=== PATIENT | male | born 1940 | race Caucasian/White ===

== ENCOUNTER 2024-02-10 15:10 | Outpatient (RCR) | payer MEDICARE, OTHER, SELFPAY | END 2024-02-10 23:59 | disposition home or self-care (01) | LOC: RPT 15:10 | PROVIDERS: ATTENDING PHYSICIAN Family Medicine | DX: M48.061 Spinal stenosis, lumbar region without neurogenic claudication (principal); Z73.6 Limitation of activities due to disability; R26.89 Other abnormalities of gait and mobility | CPT/HCPCS: 97110; 97162 ==

== ENCOUNTER 2024-03-13 14:17 | Outpatient (RCR) | payer MEDICARE, OTHER, SELFPAY | END 2024-03-13 23:59 | disposition home or self-care (01) | LOC: RPT 14:17 | PROVIDERS: ATTENDING PHYSICIAN Family Medicine | DX: M48.061 Spinal stenosis, lumbar region without neurogenic claudication (principal); Z73.6 Limitation of activities due to disability; R26.89 Other abnormalities of gait and mobility | CPT/HCPCS: 97010; 97110 ==

== ENCOUNTER 2024-04-10 15:34 | Outpatient (RCR) | payer MEDICARE, OTHER, SELFPAY | END 2024-04-11 07:45 | disposition home or self-care (01) | LOC: RPT 15:34 | PROVIDERS: ATTENDING PHYSICIAN Family Medicine | DX: R26.89 Other abnormalities of gait and mobility (principal); M48.061 Spinal stenosis, lumbar region without neurogenic claudication; Z73.6 Limitation of activities due to disability | CPT/HCPCS: 97010; 97110 ==

== ENCOUNTER → 2024-06-21 15:01 | Outpatient (REF) | payer MEDICARE, OTHER, SELFPAY | LOC: RAD 15:01 | PROVIDERS: ATTENDING PHYSICIAN Family Medicine | DX: R60.0 Localized edema (principal) | CPT/HCPCS: 93971 ==

== ENCOUNTER 2024-11-03 15:29 | Emergency (ER) | payer MEDICARE, OTHER, SELFPAY ==
[2024-11-03 15:34] VITALS: BP 173/100
[2024-11-03 15:51] LABS: % Eosinophils 5.8 % (0-6); % Immature Granulocytes 0.3 % (0-0.5); % Lymphocytes 26.6 % (20.5-51.1); % Monocytes 6.9 % (1.7-9.3); % Neutrophils 59.4 % (42.2-75.2); Absolute Basophils 0.1 10^3/uL (0-0.2); Absolute Eosinophils 0.5 10^3/uL (0-0.7); Absolute Lymphocytes 2.5 10^3/uL (1.2-3.4); Absolute Monocytes 0.7 10^3/uL (0.1-0.6); Absolute Neutrophils 5.6 10^3/uL (1.4-6.5); Hematocrit 39.1 % (39.0-52.0); Hemoglobin 13.7 g/dL (13.0-18.0); Mean Corpuscular Hgb 31.9 pg (27.0-31.0); Mean Corpuscular Volume 91.1 fL (80.0-94.0); Mean Platelet Volume 10.3 fL (7.4-10.4); Nucleated Red Blood Cells % 0 % (-); Platelet Count 193 10^3/uL (130-400); Red Blood Cell Count 4.29 10^6/uL (4.70-6.10); Red Cell Dist. Width 13.1 % (11.5-14.5); White Blood Cell Count 9.4 10^3/uL (4.8-10.8)
[2024-11-03 16:12] LABS: ALT (SGPT) 23 U/L (0-50); AST (SGOT) 25 U/L (17-59); Alkaline Phosphatase 65 U/L (38-126); Blood Urea Nitrogen 16 mg/dl (9-20); Calcium 9.3 mg/dl (8.4-10.2); Carbon Dioxide 30 mmol/L (22-30); Chloride 102 mmol/L (98-107); Glucose 212 mg/dl (70-99); Potassium 4.4 mmol/L (3.5-5.1); Sodium 138 mmol/L (135-145); Total Bilirubin 0.4 mg/dl (0.2-1.3); Total Protein 6.3 g/dl (6.3-8.2); eGFR > 60.00
--- NOTE | 2024-11-03 19:00 | EDRN ---
Report received, introduced myself to patient who is wanting to leave, informed him if I could just talk with Dr. Bustillo to see him before he decides to just leave. Spoke with Dr. Bustillo who then went in and spoke with patient and patient will get head
CT and hopefully be leaving.
[2024-11-03 19:30] LABS: Urine Albumin Negative (Neg - Trace); Urine Bilirubin Negative (Negative); Urine Character Clear (Clear); Urine Color Yellow; Urine Glucose 1+ (Negative); Urine Ketone Negative (Negative); Urine Leukocyte Negative (Negative); Urine Nitrite Negative (Negative); Urine Occult Blood Negative (Negative); Urine Urobilinogen 1+ (Neg - 1+)
--- NOTE | 2024-11-03 20:19 | ED.GENMED ---
History of Present Illness
General
Chief Complaint: Change in Mental Status
Source: patient and family
Exam Limitations: none
Time Seen by Provider: 11/03/24 18:04
Nursing documentation reviewed up to this point in time: agreed with
History of Present Illness
History of Present Illness:
Patient presents to ED for an evaluation secondary to brief episode of confusion, noted by his family this afternoon. Patient states that he had arrived at the parking lot of the hospital to visit his who was admitted 2 days earlier. However
when he parked his car, patient could not remember his spouses room number, which typically would not happen for him. Patient proceeded to call his son on the phone, where he was noted to be 'not himself' with aforementioned confusion. Denies
slurred speech. Denies headache. Denies dizziness. Denies difficulty with speech. Denies loss of sensation or weakness. Denies difficulty with ambulation. Denies previous history of similar symptoms. Denies recent medications or diet.
However, patient does report that he is under heavy stress emotionally, secondary to hospitalization of his . Patient does state that he is eating and drinking fluids on his own, as his family members are providing his meals. Denies inability
to sleep.
Review of Systems
Review of Systems
Allergies reviewed?: Yes
All Other Systems: ROS reviewed and negative except as documented in HPI and ROS
Constitutional: Reports no symptoms
EENT: Reports no symptoms
Respiratory: Reports no symptoms
Cardiac: Reports no symptoms
ABD/GI: Reports no symptoms
Musculoskeletal: Reports no symptoms
Skin: Reports no symptoms
Neurological: Reports other (confusion)
Phy Exam
Physical Exam
Physical Exam:
Physical Exam
General: no apparent distress, not acutely ill. afebrile
Head: nc/at. eomi
Neck: supple. normal range of motion
Heart: s1/s2 regular rate and rhythm, no murmur. equal radial pulses.
Lungs: no acute respiratory distress. clear bilaterally
Abdomen: normal bowel sounds. not tender.
Neuro: alert and oriented x 3. no focal sensory/motor deficit. normal speech. normal heel to dyer testing. normal finger to nose testing. normal gait.
Skin: no rash
Psychiatric: well kept. interactive and cooperative
Extremities: no edema. no calf tenderness.
Course
Orders/Labs/Results
Orders:
Orders
11/03/24 15:42
CMP [Comprehensive Metabolic Panel] Urgent
Complete Blood Count/With Diff Urgent
11/03/24 19:23
Urinalysis Reflex To Culture Urgent
Date Specimen was Collected: 11/03/24
Time Specimen was Collected: 18:47
11/03/24 20:00
CT Head W/o Iv Contrast Urgent
Comment:
Reason For Exam: mental status change
Abnormal Lab Results
11/03/24 11/03/24
15:42 19:23
RBC 4.29 L 10^6/uL
(4.70-6.10)
MCH 31.9 H pg
(27.0-31.0)
Absolute Monos (auto) 0.7 H 10^3/uL
(0.1-0.6)
Glucose 212 H mg/dl
(70-99)
Urine Glucose 1+ A
(Negative)
11/03/24 15:42
11/03/24 15:42
Vital Signs
Initial and Last Documented VS:
Initial Vital Signs
Temp Pulse Resp BP Pulse Ox
97.9 F 94 16 173/100 98
11/03/24 15:34 11/03/24 15:34 11/03/24 15:34 11/03/24 15:34 11/03/24 15:34
Last Documented Vital Signs
Temp Pulse Resp BP Pulse Ox
97.9 F 62 16 178/79 99
11/03/24 15:34 11/03/24 20:22 11/03/24 20:22 11/03/24 20:22 11/03/24 20:22
MDM/Problems Addressed
MDM/Problems Addressed:
Patient remains asymptomatic during extended course of observation ED, along with unremarkable workup, including blood work and CT head. Differential diagnosis, including potential TIA, discussed with patient and her family. However, given
patient's complete vascular symptoms along with short duration, decision made to discharge patient home at this time, with recommendation for close follow-up with PCP, including potential MRI brain as outpatient. Prior to discharge, did have
extensive discussion about having to return to ED with any recurrent or new neurological symptoms. In addition, related to son recommendation for potentially taking 81 mg aspirin daily, unless there is a history of GI bleed or allergy history.
*Critical Care Note
Total Time (30-74mins, 75-104mins- exclusive of procedures): Not Applicable
ED Attending Note
-
Portions of this chart may have been created with voice recognition software.� Occasional wrong word or��sound alike� substitutions may have occurred due to the inherent limitations of voice recognition software.
Discharge Plan
Departure
Patient Disposition: Home (Routine Discharge)
Date of Disposition: 11/03/24
Time of Disposition: 20:53
Patient with high blood pressure during this ER visit?: Yes
Condition: Good
Discharge Problem:
Altered mental status
Instructions: Altered Mental Status (DC)
Prescriptions:
No Action
glipizide 5 mg Tablet Extended Release 24hr
15 mg PO DAILY
glipizide 5 mg Tablet Extended Release 24hr
5 mg PO HS
simvastatin 40 mg Tablet
40 mg PO HS
ibuprofen 200 mg Tablet
200 mg PO Q6H PRN (Reason: pain)
fluticasone propionate [Flonase Allergy Relief] 50 mcg/actuation [place],Suspension
1 spray INTRANASAL DAILY
metformin 500 mg Tablet Extended Release 24 Hr
500 mg PO BID
tramadol 50 mg tablet
50 mg PO Q6HPRN PRN (Reason: severe pain/breakthrough pain) Qty: 10 0RF
acetaminophen [Tylenol Extra Strength] 500 mg tablet
1,000 mg PO Q6HPRN PRN (Reason: mild pain) Qty: 1 0RF
polyethylene glycol 3350 [Miralax] 17 gram/dose powder
4 g PO DAILY PRN (Reason: Constipation) Qty: 119 0RF
Rx Instructions:
start a laxative such as MIRALAX on day 2 after surgery if no bowel movement yet as long as no nausea/vomiting and passing gas
Referrals:
Evin Zaldivar MD [Family Provider] -
Activity Restrictions/Additional Instructions:
As discussed, please follow-up with your primary care physician for reevaluation, including potential MRI brain as an outpatient.
Interventions
Interventions:
*Risk Screen - Suicide Last Done: 11/03/24 15:34
*General Assessment Last Done: 11/03/24 15:34
*Neglect/Abuse Screening Last Done: 11/03/24 21:03
ED- Fall Risk Assessment Last Done: 11/03/24 16:33
*ED COVID-19 Vaccine History Last Done: 11/03/24 15:34
*Nursing Disposition Last Done: 11/03/24 21:05
ED- Pulmonary Assessment Last Done: 11/03/24 16:33
ED- Neurological Assessment Last Done: 11/03/24 16:33
Discharge Date and Time
Discharge Date/Time: 11/03/24 21:06
Print Language: AZERBAIJANI
[2024-11-03 20:22] VITALS: BP 178/79
--- NOTE | 2024-11-03 21:03 | EDRN ---
Dr. Bustillo back in to talk with family about being discharged and the importance of follow up and if anything changes with him to come back, patient and family understand.
== END 2024-11-03 21:06 | disposition home or self-care (01) ==
LOC: EMR 15:29
PROVIDERS: EMERGENCY PHYSICIAN Emergency Medicine; FAMILY PHYSICIAN Family Medicine
DX: R41.82 Altered mental status, unspecified (principal)
CPT/HCPCS: 99284; 70450; 80053; 81003; 85025

== ENCOUNTER 2025-11-13 08:10 | Inpatient (IN) | payer MEDICARE, OTHER, SELFPAY ==
[2025-11-10] VITALS (11 sets, daily range): BP systolic 166–188; BP diastolic 71–92; BMI 22.6
[2025-11-10 16:08] LABS: Hematocrit 39.0 % (39.0-52.0); Hemoglobin 13.3 g/dL (13.0-18.0); Mean Corp Hgb Conc. 34.1 g/dL (33.0-37.0); Mean Corpuscular Volume 91.1 fL (80.0-94.0); Nucleated Red Blood Cells % 0 % (-); Platelet Count 227 10^3/uL (130-400); Red Cell Dist. Width 12.7 % (11.5-14.5)
--- NOTE | 2025-11-10 16:28 | ED.GENMED ---
History of Present Illness
<Heidy Silver PA-C - Last Filed: 11/11/25 19:59>
General
Chief Complaint: Abdominal Pain
Source: patient and family
Exam Limitations: none
Time Seen by Provider: 11/10/25 15:56
Nursing documentation reviewed up to this point in time: agreed with
History of Present Illness
History of Present Illness:
Patient is a 84-year-old male with history of diabetes who presents to the emergency department for evaluation of upper abdominal discomfort. Patient describes a pressure type pain in his upper abdomen which he initially noticed yesterday. He
currently reports it is 5/6 out of 10 in severity. He denies any sharp or tearing component to pain. He denies any radiation of pain into the back, shoulder, or jaw. He also reports intermittent nausea/lack of appetite over the past few weeks.
He denies any shortness of breath at rest however states that over the past 2 weeks he has been winded with minimal exertion.
He denies any fever, chills, urinary symptoms, or changes in bowel habits. No vomiting. No productive cough.
Patient does have family history of cardiac disease however no personal history.
Review of Systems
<Heidy Silver PA-C - Last Filed: 11/11/25 19:59>
Review of Systems
Allergies reviewed?: Yes
All Other Systems: ROS reviewed and negative except as documented in HPI and ROS
Phy Exam
<Heidy Silver PA-C - Last Filed: 11/11/25 19:59>
Physical Exam
Physical Exam:
Vitals: Hypertensive, otherwise vital signs stable. Afebrile
General: Patient appears in no distress.
Skin: Warm and dry, no rashes or lesions
Head: Normocephalic, atraumatic
Eyes: Sclera nonicteric.
Throat: Protecting airway
Neck: Normal ROM, no cervical spine tenderness, no meningismus
Cardiac: Regular rate and rhythm, no murmurs.
Pulm: Normal respiratory effort. Lungs clear bilaterally
Abdomen: Abdomen soft. Mild reproducible tenderness in epigastric region. No rebound or guarding. Negative Lorenz sign.
Extremities: No evidence of cyanosis or edema
Neuro: AAOx3. Grossly intact
Psychiatric: Normal affect.
Course
<Heidy Silver PA-C - Last Filed: 11/11/25 19:59>
Orders/Labs/Results
Orders:
Orders
11/10/25 11:49
IV Insert/Care/Rem.- Treatment PRN
11/10/25 11:50
Electrocardiogram (*1) Urgent
Reason for Study: Abdominal Pain
EKG- Treatment ONCE
11/10/25 15:56
Complete Blood Count/With Diff Urgent
Comprehensive Metabolic Panel Urgent
Lipase Urgent
11/10/25 15:57
NT-proBNP Urgent
Comment: ADD ON
Troponin I Urgent
11/10/25 16:26
CR Chest - 2 Views Urgent
Comment:
Reason For Exam: epigastric pain, exertional dyspnea
11/10/25 16:36
Famotidine [Pepcid] 20 mg IV NOW STA
11/10/25 16:37
Morphine Sulfate 4 mg IV NOW STA
11/10/25 16:49
CT Abd/pelvis W Iv Cont Urgent
Comment:
Reason For Exam: epigastric pain, nausea
11/10/25 19:00
Electrocardiogram (*1) Urgent
Reason for Study: Abdominal Pain
EKG- Treatment ONCE
11/10/25 19:13
Troponin I Urgent
11/10/25 19:44
Morphine Sulfate 2 mg IV NOW STA
11/10/25 22:[address] [CT Head W/o Iv Contrast] Stat
Comment:
Reason For Exam: acute confusion
11/10/25 22:11
COVID-19 Antigen Urgent
Source: Nasal Swab
Influenza A+B Rapid Molecular Urgent
AUBREE Source: Nasal Swab
Specimen Description:
11/10/25 22:12
Admit/Transfer Patient As Directed
Co-Sign Provider:
Level of Care: Observation services
Assign to:: Telemetry
Physician / Group: Chriss Burger
Diagnosis: Left bundle branch block (LBBB), Epigastric abdominal pain, acute confusion
Reason for Telemetry: Arrhythmia
Date to Stop Telemetry: 11/13/25
Time to Stop Telemetry: 11:00
Urinalysis Reflex To Culture Stat
Date Specimen was Collected: 11/11/25
Time Specimen was Collected: 02:59
11/10/25 22:13
PRN Pain Medication Management As Directed
May give lesser potent ordered pain med per pt: Yes
preference::
Protocol:: Medication orders for pain may be administered in a
manner that supports deferring to patient preference
when the pt is:
- Requesting an ordered lesser potent pain medication.
Least to most potent pain medications are defined
as: acetaminophen < NSAID < tramadol < opioids
(morphine, oxycodone, hydromorphone).
- Requesting a lesser dose of the same medication IF
ORDERED.
- Requesting a less intrusive route of administration
if both routes are prescribed by the provider (PO <
IV).
11/10/25 22:14
Code Status As Directed
Resuscitation Status: Full Code
11/10/25 23:48
Acetaminophen [Tylenol] 650 mg PO Q4HPRN PRN
Bisacodyl [Dulcolax] 10 mg RECTAL [id number] PRN
Dextrose 50%-Water [Dextrose 50% Syringe] 12.5 grams IV [id number] PRN
Docusate W/Senna [Senokot-S] 1 tablet PO BIDPRN PRN
Glucagon [GlucaGen] 1 mg IM PRN PRN
Morphine Sulfate 2 mg IV Q4HPRN PRN
Oxycodone [Roxicodone] 5 mg PO Q4HPRN PRN
Polyethylene Glycol Powder [Miralax] 17 grams PO DAILYPRN PRN
11/10/25 23:48
Activity As Directed
Activity Level: As Tolerated
Bedside Glucose Monitoring As Directed
Frequency: AC&HS
Additional Instructions:: Change to q6h if pt on TPN, tube feeding or not eating
Intake/ Output As Directed
Frequency: Per unit guidelines
Vital Signs As Directed
Frequency: Per unit guidelines
Weight As Directed
Frequency: Once
Comment: on admission
Pulse Ox/spot Check [RESP] Routine
Quantity: 1
Ot Eval And Treat Routine
Pt Eval And Treat Routine
Activity Level: As Tolerated
DX Deep Vein Thrombosis Video Routine
11/11/25 03:09
Glycohemoglobin (HgbA1c) IN AM
11/11/25 Breakfast
2000 calorie (17 carb) Diabetic
At Your Request: Limited Participation
Does patient need a safe tray?: No
11/11/25 07:30
Insulin Aspart Corrective Low [Novolog Flexpen-Low Resistance] See Protocol SC AC
11/11/25 08:00
Rosuvastatin Calcium [Crestor] 20 mg PO DAILY
11/11/25 18:00
Enoxaparin Sodium [Lovenox] 40 mg SC QPM
11/13/25 11:00
DC Protocol for Telemetry ONCE
Abnormal Lab Results
11/10/25
15:56
WBC 11.5 H 10^3/uL
(4.8-10.8)
RBC 4.28 L 10^6/uL
(4.70-6.10)
MCH 31.1 H pg
(27.0-31.0)
MPV 10.5 H fL
(7.4-10.4)
Abs Immat Gran (auto) 0.1 H 10^3/uL
(0-0.05)
Absolute Neuts (auto) 8.8 H 10^3/uL
(1.4-6.5)
Neutrophils % 76.9 H %
(42.2-75.2)
Lymphocytes % 18.2 L %
(20.5-51.1)
Glucose 223 H mg/dl
(70-99)
11/10/25 15:56
11/10/25 15:56
Vital Signs
Initial and Last Documented VS:
Initial Vital Signs
Temp Pulse Resp BP
98.8 F 98 22 177/85
11/10/25 11:46 11/10/25 11:46 11/10/25 11:46 11/10/25 11:46
Last Documented Vital Signs
Temp Pulse Resp BP Pulse Ox
99.9 F 96 18 172/76 96
11/11/25 19:53 11/11/25 19:53 11/11/25 19:53 11/11/25 15:10 11/11/25 21:00
[place];Sabas Maldonado DO - Last Filed: 11/11/25 22:49>
Orders/Labs/Results
Orders:
Orders
11/10/25 11:49
IV Insert/Care/Rem.- Treatment PRN
11/10/25 11:50
Electrocardiogram (*1) Urgent
Reason for Study: Abdominal Pain
EKG- Treatment ONCE
11/10/25 15:56
Complete Blood Count/With Diff Urgent
Comprehensive Metabolic Panel Urgent
Lipase Urgent
11/10/25 15:57
NT-proBNP Urgent
Comment: ADD ON
Troponin I Urgent
11/10/25 16:26
CR Chest - 2 Views Urgent
Comment:
Reason For Exam: epigastric pain, exertional dyspnea
11/10/25 16:36
Famotidine [Pepcid] 20 mg IV NOW STA
11/10/25 16:37
Morphine Sulfate 4 mg IV NOW STA
11/10/25 16:49
CT Abd/pelvis W Iv Cont Urgent
Comment:
Reason For Exam: epigastric pain, nausea
11/10/25 19:00
Electrocardiogram (*1) Urgent
Reason for Study: Abdominal Pain
EKG- Treatment ONCE
11/10/25 19:13
Troponin I Urgent
11/10/25 19:44
Morphine Sulfate 2 mg IV NOW STA
11/10/25 22:[address] [CT Head W/o Iv Contrast] Stat
Comment:
Reason For Exam: acute confusion
11/10/25 22:11
COVID-19 Antigen Urgent
Source: Nasal Swab
Influenza A+B Rapid Molecular Urgent
AUBREE Source: Nasal Swab
Specimen Description:
11/10/25 22:12
Admit/Transfer Patient As Directed
Co-Sign Provider:
Level of Care: Observation services
Assign to:: Telemetry
Physician / Group: Chriss Burger
Diagnosis: Left bundle branch block (LBBB), Epigastric abdominal pain, acute confusion
Reason for Telemetry: Arrhythmia
Date to Stop Telemetry: 11/13/25
Time to Stop Telemetry: 11:00
Urinalysis Reflex To Culture Stat
Date Specimen was Collected: 11/11/25
Time Specimen was Collected: 02:59
11/10/25 22:13
PRN Pain Medication Management As Directed
May give lesser potent ordered pain med per pt: Yes
preference::
Protocol:: Medication orders for pain may be administered in a
manner that supports deferring to patient preference
when the pt is:
- Requesting an ordered lesser potent pain medication.
Least to most potent pain medications are defined
as: acetaminophen < NSAID < tramadol < opioids
(morphine, oxycodone, hydromorphone).
- Requesting a lesser dose of the same medication IF
ORDERED.
- Requesting a less intrusive route of administration
if both routes are prescribed by the provider (PO <
IV).
11/10/25 22:14
Code Status As Directed
Resuscitation Status: Full Code
11/10/25 23:48
Acetaminophen [Tylenol] 650 mg PO Q4HPRN PRN
Bisacodyl [Dulcolax] 10 mg RECTAL [id number] PRN
Dextrose 50%-Water [Dextrose 50% Syringe] 12.5 grams IV [id number] PRN
Docusate W/Senna [Senokot-S] 1 tablet PO BIDPRN PRN
Glucagon [GlucaGen] 1 mg IM PRN PRN
Morphine Sulfate 2 mg IV Q4HPRN PRN
Oxycodone [Roxicodone] 5 mg PO Q4HPRN PRN
Polyethylene Glycol Powder [Miralax] 17 grams PO DAILYPRN PRN
11/10/25 23:48
Activity As Directed
Activity Level: As Tolerated
Bedside Glucose Monitoring As Directed
Frequency: AC&HS
Additional Instructions:: Change to q6h if pt on TPN, tube feeding or not eating
Intake/ Output As Directed
Frequency: Per unit guidelines
Vital Signs As Directed
Frequency: Per unit guidelines
Weight As Directed
Frequency: Once
Comment: on admission
Pulse Ox/spot Check [RESP] Routine
Quantity: 1
Ot Eval And Treat Routine
Pt Eval And Treat Routine
Activity Level: As Tolerated
DX Deep Vein Thrombosis Video Routine
11/11/25 03:09
Glycohemoglobin (HgbA1c) IN AM
11/11/25 Breakfast
2000 calorie (17 carb) Diabetic
At Your Request: Limited Participation
Does patient need a safe tray?: No
11/11/25 07:30
Insulin Aspart Corrective Low [Novolog Flexpen-Low Resistance] See Protocol SC AC
11/11/25 08:00
Rosuvastatin Calcium [Crestor] 20 mg PO DAILY
11/11/25 18:00
Enoxaparin Sodium [Lovenox] 40 mg SC QPM
11/13/25 11:00
DC Protocol for Telemetry ONCE
Abnormal Lab Results
11/10/25
15:56
WBC 11.5 H 10^3/uL
(4.8-10.8)
RBC 4.28 L 10^6/uL
(4.70-6.10)
MCH 31.1 H pg
(27.0-31.0)
MPV 10.5 H fL
(7.4-10.4)
Abs Immat Gran (auto) 0.1 H 10^3/uL
(0-0.05)
Absolute Neuts (auto) 8.8 H 10^3/uL
(1.4-6.5)
Neutrophils % 76.9 H %
(42.2-75.2)
Lymphocytes % 18.2 L %
(20.5-51.1)
Glucose 223 H mg/dl
(70-99)
11/10/25 15:56
11/10/25 15:56
Vital Signs
Initial and Last Documented VS:
Initial Vital Signs
Temp Pulse Resp BP
98.8 F 98 22 177/85
11/10/25 11:46 11/10/25 11:46 11/10/25 11:46 11/10/25 11:46
Last Documented Vital Signs
Temp Pulse Resp BP Pulse Ox
99.9 F 96 18 172/76 96
11/11/25 19:53 11/11/25 19:53 11/11/25 19:53 11/11/25 15:10 11/11/25 21:00
<Heidy Silver PA-C - Last Filed: 11/11/25 19:59>
MDM/Problems Addressed
Differential Diagnosis Includes:
Not limited to: Gastritis, pancreatitis, biliary colic, acute cholecystitis, acute coronary syndrome, etc.
MDM/Problems Addressed:
84-year-old male with a Abdominal discomfort yesterday as well as intermittent nausea/anorexia for the past 2 weeks. Also reports worsening dyspnea on exertion over the past month. Vitals and physical exam as above. Patient has mild tenderness in
epigastric region although abdomen is soft. Cardio/pulmonary assessment unremarkable.
An EKG was obtained prior to my evaluation which reveals a new left bundle branch block. He does not express any chest pain.
Symptoms seem more abdominal in nature, however would consider cardiac etiology with epigastric discomfort and new left bundle branch block. Will check, abdominal CT, chest x-ray and trend cardiac enzymes. Will treat pain and reassess.
Update: Labs with mild leukocytosis. Chemistry panel with hyperglycemia, otherwise unremarkable. Initial troponin of 0.015. His pain is improved since initial evaluation. CT pending.
Update: CT reveals multiple findings. L4 compression deformity as well as right 10th rib fracture likely secondary to patient's recent fall a few nights ago. Cholelithiasis noted as well as small soft tissue mass in the pancreas. Discussed all
findings with patient's family at length. It is unclear if maybe experiencing symptomatic cholelithiasis or may be related to pancreatic lesion. Also consider possible gastritis/GERD. Repeat troponin is stable making acute cardiac pathology less
likely.
Ultimately�patient has had recurrent pain requiring multiple dose of pain medication. He will require admission for pain control and further evaluation. Patient accepted to hospitalist service in stable condition.
Chronic conditions affecting care:
Diabetes mellitus
Acute Exacerbation and/or Progression of Chronic Illness:
Acute hyperglycemia
<Heidy Silver PA-C - Last Filed: 11/11/25 19:59>
*Radiology
Radiology exam reviewed: radiology read reviewed
*Pulse Oximetry
SaO2: 100
Oxygen Mode of Delivery: Room air
Patient hypoxic: no
*EKG
Interpreted by ED Provider?: Yes
EKG Intrepretation Date: 11/11/25
Interpretation: abnormal
Comparison EKG: changes noted
Heart Rate: 82
Rate: normal
Rhythm: sinus
[place]: normal axis
Interval: normal QT interval
QRS Pattern: left bundle branch block
Ischemia: no ischemia
*Top Loader Interpretation
Rate: normal
Interpretation: normal
Heart Rate: 78
Rhythm: sinus
*Critical Care Note
Total Time (30-74mins, 75-104mins- exclusive of procedures): Not Applicable
<Heidy Silver PA-C - Last Filed: 11/11/25 19:59>
Patient Management
Discussion with other providers: Hospitalist
ED Attending Note
<Heidy Silver PA-C - Last Filed: 11/11/25 19:59>
-
Portions of this chart may have been created with voice recognition software.� Occasional wrong word or��sound alike� substitutions may have occurred due to the inherent limitations of voice recognition software.
<Sabas Maldonado DO - Last Filed: 11/11/25 22:49>
ED Attending Note
Patient seen and examined by attending physician: Yes
I performed the substantive portion of visit, reviewed & personally made and approve the management plan that is documented in note by myself or NITO.: Yes
ED Attending Note:
i agree with April's note.
Pt with upper abd pain, nausea, vomiting. Pain waxes and wanes but doesn't go away. No diarrhea. No chest pain per se. No shortness of breath really. He does have some dyspnea on exertion.
General: Awake, Alert, Oriented X3. No acute distress.
Vitals: unremarkable
Head: Atraumatic
Eyes: Pupils equal, EOMI
Throat: Airway intact, no exudates
Neck: Trachea midline
Lungs: Clear and equal b/l
Heart: Regular rate, no murmurs
Abd: Soft, upper abdominal tenderness to palpation, No pulsatile mass
Neuro: Nonfocal
Skin: Warm, dry, no rash
Extremities: pulses equal b/l, no edema
EKG: Sinus rhythm, left bundle branch block. Left bundle branch block is new compared to previous EKG of September 2023.
Troponin is normal. If this abdominal pain was related to ACS I would expect his troponin to be elevated at this point given its been present for several hours.
Patient's abdominal pain is poorly controlled. CT shows a pancreatic lesion. Unclear if this is the source of the pain. Will hospitalize for further evaluation, analgesia etc.
Discharge Plan
Departure
Patient Disposition: Admit
Date of Disposition: 11/10/25
Time of Disposition: 19:44
Presentation/result/management discussed w/ accepting MD/DO: Hospitalist
Discharge Problem:
Epigastric abdominal pain, Left bundle branch block (LBBB)
Interventions
Interventions:
*General Assessment Last Done: 11/10/25 15:46
*Neglect/Abuse Screening Last Done: 11/10/25 15:46
*ED COVID-19 Vaccine History Last Done: 11/10/25 11:46
*ED Influenza Vaccine History Last Done: 11/10/25 11:46
[facility] Fall Risk Assessment Tool Last Done: 11/10/25 15:46
*Risk Screen - Suicide (C-SSRS) Last Done: 11/10/25 11:46
*Nursing Disposition Last Done: 11/10/25 23:10
QE-[id number]-Ilrtedoxrk Assessment Last Done: 11/10/25 19:21
Discharge Date and Time
Discharge Date/Time: 11/10/25 23:10
[2025-11-10 16:31] LABS: ALT (SGPT) 20 U/L (0-50); AST (SGOT) 21 U/L (17-59); Albumin 4.0 g/dl (3.5-5.0); Alkaline Phosphatase 106 U/L (38-126); Blood Urea Nitrogen 19 mg/dl (9-20); Calcium 9.8 mg/dl (8.4-10.2); Carbon Dioxide 27 mmol/L (22-30); Chloride 102 mmol/L (98-107); Estimated Creatinine Clearance 62 ml/min; Glucose 223 mg/dl (70-99); Lipase 25 U/L (23-300); Potassium 4.3 mmol/L (3.5-5.1); Sodium 138 mmol/L (135-145); Total Protein 6.5 g/dl (6.3-8.2); eGFR > 60.00
[2025-11-10 16:35] LABS: Troponin I 0.015 ng/ml
[2025-11-10] MEDS: MORPHINE SULFATE 4 MG IV (16:51)
[2025-11-10] MEDS: PEPCID 20 MG IV (16:51)
[2025-11-10 19:42] LABS: Troponin I 0.015 ng/ml
[2025-11-10] MEDS: MORPHINE SULFATE 2 MG IV (19:57)
--- NOTE | 2025-11-10 21:08 | HPS.HSE ---
Addendum entered and electronically signed by Chriss Burger DO 11/10/25 22:54:
Patient seen and examined independently. Agree with findings and plan as set forth by EYAL Myers.
Patient is an 84y M with PMH significant for DM-II and dyslipidemia who presents to ED complaining of abdominal discomfort. Patient states that he had a 'dizzy spell' about one week ago and fell backwards striking the wall. He denies LOC. He
denies any prior history of similar 'dizzy spells'. He was seen at Urgent Care after the fall and imaging there was reportedly unremarkable.
Yesterday, patient developed abdominal pain and nausea. He notes pain in the center of the abdomen. No radiation into the back, chest, etc.
Ass:
Abdominal Pain
Fall at Home / Dizziness
New LBBB
Pancreatic Lesion
DM-II
Plan:
Observe overnight for further evaluation and treatment.
? pain related to fall / injuries.
Imaging in the ED shows R 10th rib fracture and L4 compression fracture.
Lesion / soft-tissue mass in body of pancreas - seems less likely that this would be etiology of pain.
Monitor on tele given fall, dizziness, LBBB.
Troponin unremarkable x 2.
Check Echo in AM.
PT / OT evaluations. Pain control / supportive care.
Will need further evaluation of pancreatic lesion - likely as an outpatient.
Original Note:
Family Physician
-
Family Physician: Evin Zaldivar
Chief Complaint
-
upper abdominal pain
History of Present Illness
Patient is a 84-year-old male with past medical history significant for hyperlipidemia and type 2 diabetes who presented to [facility] ED for evaluation of upper abdominal pain with associated nausea. Patient with daughters at bedside to assist with HPI.
Patient is drowsy and confused with assessment, daughters report he has gotten more confused since administration of pain medication. Patients daughter reports that patient sustained a significant fall approximately 1 week ago, was unwitnessed but
family notes dent into dry wall, he was seen at urgent care with no acute findings. He has complained of right sided pain since fall. They report that he started complaining of moderate epigastric pain since yesterday that has been associated with
nausea. They also endorse exertional dyspnea that has been present for sometime and does not appear to be worse. Patient baseline is primary caregiver to his at home, is AAOx4 and indepentent for all ADLs. Denies fever, chills, cough, chest
pain, vomiting, constipation, dairrhea or urinary symptoms.
Medical History
Past Medical History
Past Medical History: Reports Other
Additional Past Medical History:
hyperlipidemia
type 2 diabetes
GERD
Past Surgical History: Reports Other
Additional Past Surgical History:
Left inguinal s/p repair 08/2004
Excision of recurrent sebaceous cyst posterior neck 06/03/2020
tonsillectomy
open right inguinal hernia repair with mesh ([facility]) 09/23/2023
Social History
Tobacco: Non-smoker
Alcohol: Occasional
Drug: None
Personal:
Living: With Family
Employment: Retired
Family History
Family History: Not pertinent
Allergies / Home Medications
Allergies reflects when Allergies were last updated in [employer].
Home Medications with original date entered in [employer]
Allergy/Medication List:
Allergies
Allergy/AdvReac Type Severity Reaction Status Date / Time
No Known Allergies Allergy Verified 11/10/25 11:45
Home Medications
fluticasone propionate 50 mcg/actuation nasal spray,suspension (Flonase Allergy Relief) 1 spray intranasal DAILY 09/16/23
glipizide 5 mg tablet, extended release 24 hr 5 mg PO HS 09/16/23
glipizide 5 mg tablet, extended release 24 hr 15 mg PO DAILY 09/16/23
ibuprofen 200 mg tablet 200 mg PO Q6H PRN pain 09/16/23
metformin 500 mg tablet,extended release 24 hr 500 mg PO BID 09/16/23
acetaminophen 500 mg tablet (Tylenol Extra Strength) 1,000 mg (2 x 500 mg) PO Q6HPRN PRN mild pain #1 tab 09/23/23
polyethylene glycol 3350 17 gram/dose oral powder (Miralax) 4 g PO DAILY PRN Constipation #119 grams 09/23/23
tramadol 50 mg tablet 50 mg PO Q6HPRN PRN severe pain/breakthrough pain #10 tabs 09/23/23
rosuvastatin 20 mg tablet 20 mg PO DAILY 11/10/25
*med rec to be confirmed tomorrow with daughters, patient unable to recall all medications, dosing and frequency*
Review of Systems
-
History Source: Patient and Family
Constitutional: Reports Fatigue; Denies Fever or Chills
EENT: Denies Sore Throat
Respiratory: Reports Trouble Breathing (exertional dyspnea ); Denies Cough
Cardiac: Denies Chest Pain, Diaphoresis, Palpitations or Syncope
Abdomen/GI: Reports Abdominal Pain (epigastric ) and Nausea; Denies Vomiting or Diarrhea
: Denies Dysuria, Frequency or Urgency
Musculoskeletal: Reports Other (right side pain); Denies Joint Pain
Skin: Denies Rash
Neurological: Denies Dizzy, Headache, Weakness or Numbness
Physical Exam
Vital Signs
Vital Signs
Temp Pulse Resp BP Pulse Ox
99.6 F 84 25 174/71 95
11/10/25 19:21 11/10/25 20:00 11/10/25 20:00 11/10/25 20:00 11/10/25 20:00
Physical Exam
General: Well Developed, Well Nourished, No Apparent Distress and Conversant
HEENT: NormoCephalic, Moist mucous membranes, PERRLA, Nose Appears Normal and Ears Appear Normal
Respiratory: Clear and Non Labored Respirations; No Wheezes, Rales or Rhonchi
Cardiac: S1/S2, Regular Rhythm, Murmur and Peripheral Edema; No Rub or Gallop
GI: Soft, Non Tender, Non Distended and Normal Bowel Sounds
Musculoskeletal: No Clubbing and No Cyanosis
Skin: Warm and IV/Catheter Site
Neuro: Awake and Sedated
Psych: Calm
Laboratory Results
-
11/10/25 15:56
11/10/25 15:56
Laboratory Results
Total Bilirubin 0.8 mg/dl (0.2-1.3) 11/10/25 15:56
AST 21 U/L (17-59) 11/10/25 15:56
ALT 20 U/L (0-50) 11/10/25 15:56
Alkaline Phosphatase 106 U/L (38-126) 11/10/25 15:56
Troponin I 0.015 ng/ml 11/10/25 19:13
Lipase 25 U/L (23-300) 11/10/25 15:56
Data Reviewed
-
Diagnostic Radiology: Report Reviewed by me (CXR: No acute cardiopulmonary process.)
CT Scan: Report Reviewed by me (Abd/Pe;: No acute inflammatory process within the abdomen or pelvis. Diverticulosis without acute diverticulitis. No bowel obstruction. No obstructive uropathy. Renal cysts. Cholelithiasis without CT evidence of
acute cholecystitis. Incidental 14 x 17 mm soft tissue pancreatic mass. This could r)
Medical Tests (Nuc Med, Echo, EKG etc): Report Reviewed by me (EKG: NORMAL SINUS RHYTHM LEFT BUNDLE BRANCH BLOCK)
Lab Data: Labs Reviewed by me (WBC 11.5, neut 76.9 )
Impression/Plan
-
IMPRESSION/PLAN:
#upper abdominal pain, nausea and decreased appetite for past several weeks 2/2 recent fall with injuries vs. cholecystitis vs. cardiac origin
upper abdominal pain, nausea and decreased appetite for past several weeks, recent fall (1 week ago)where patient c/o dizziness and nausea before hitting wall and denting drywall originally seen
in urgent care with no acute findings
WBC 11.5, neut 76.9
EKG: NORMAL SINUS RHYTHM
LEFT BUNDLE BRANCH BLOCK
CXR; No acute cardiopulmonary process.
Abd/Pel CT: No acute inflammatory process within the abdomen or pelvis.
Diverticulosis without acute diverticulitis. No bowel obstruction.
No obstructive uropathy. Renal cysts.
Cholelithiasis without CT evidence of acute cholecystitis.
Incidental 14 x 17 mm soft tissue pancreatic mass. This could represent low risk malignancy such as solid pseudopapillary tumor or solid serous cystadenoma, or malignancy such as
neuroendocrine tumor or acinar cell carcinoma. Further evaluation/characterization may be considered with nonemergent follow-up MRI.
Comminuted slightly displaced right lateral 10th rib fracture.
Mild superior endplate fracture of L4. No significant displacement. No retropulsed fracture fragments.
- Admit to telemetry
- Consult PT/OT
- pain regimen
#acute confusion
recent fall 1 week ago with associated dizziness and nausea with dent in drywall per family
Head CT: pending
#soft tissue pancreatic mass
incidental finding on Abd/Pel CT
- follow up out patient with GI
#LBBB
- monitor on telemetry
- ECHO
- follow up with Cardiology out patient
#hyperlipidemia
- continue rosuvastatin
#type 2 diabetes
- AccuCheck AC & HS
- SSI
- hold PO medications while acutely ill
*med rec to be confirmed tomorrow with daughters, patient unable to recall all medications, dosing and frequency, able to confirm glipizide and rosuvastatin with daughters tonight*
Code status: Full code
DVT prophylaxis: Lovenox sq
[2025-11-10 22:44] LABS: COVID-19 Antigen Negative (Negative)
[2025-11-10 23:29] LABS: Glucose - Point of Care 233 mg/dl (70-99)
[2025-11-11] VITALS (14 sets, daily range): BP systolic 137–194; BP diastolic 60–85; PULSE 96–100; O2SAT 97–99; BMI 23.2
[2025-11-11] MEDS: APRESOLINE 5 MG IV (01:42)
--- NOTE | 2025-11-11 02:31 | PTCARENOTE ---
Received pt into room 2252 from ED RN @ approx 2315 via stretcher. pt ambulated w/ rw. Applied tele to pt, SR w/ HR 70's-80's. pt denies any pain at this time. Admission questions and assessment completed as documented. Oriented pt to room and call
flaco. Instructed pt to call RN for assistance ambulating. Call sam within reach.
SBP's 180's-190's. Jacqueline Calderon NP made aware--Ordered PRN Hydralazine. Administered per order.
[2025-11-11] MEDS: TYLENOL 650 MG PO ×3 (03:13→22:56)
[2025-11-11 04:02] LABS: Urine Character Clear (Clear)
[2025-11-11] MEDS: COMPAZINE 10 MG IV (04:30)
[2025-11-11] MEDS: ROXICODONE 5 MG PO (04:54)
[2025-11-11 05:19] LABS: Urine Red Blood Cell 0-2 /HPF (0-2); Urine White Cell 0-2 /HPF (0-5)
[2025-11-11] MEDS: APRESOLINE 10 MG IV (06:11)
--- NOTE | 2025-11-11 07:14 | PTCARENOTE ---
pt c/o nausea, SWIMMER made aware and ordered one time order of Compazine. Administered per order. PRN Rosio administered @ 0454, as well for 10/10 epigastric pain. pt verbalizes pain is still 10/10.
[2025-11-11 07:43] LABS: Glucose - Point of Care 265 mg/dl (70-99)
[2025-11-11] MEDS: CRESTOR 20 MG PO (07:46)
[2025-11-11 08:34] LABS: Glycohemoglobin (HgbA1c) 8.4 % (4.0-5.9)
[2025-11-11 10:23] LABS: Glucose - Point of Care 320 mg/dl (70-99)
[2025-11-11] MEDS: NOVOLOG FLEXPEN-LOW RESISTANCE 4 UNITS SC (10:23)
--- NOTE | 2025-11-11 12:22 | CM ---
Chart reviewed. I spoke with the patient and his daughter. Patient is independent of ADLS, currently living with his at [facility] in a apartment. Patient is independent, but receives assistive care. Patient recently has been
ambulating with a SPC and RW due to back pain and a recent fall. PT evaluation recommending SNF vs Home with 24/7 care. Patient's daughter said the patient would really like to go home. Patient's daughter interested in VN with Home PT. Referral
sent to [facility]. Plan is for the patient to return to [facility] with [facility]. CM to follow
[2025-11-11 13:07] LABS: Glucose - Point of Care 292 mg/dl (70-99)
[2025-11-11] MEDS: NOVOLOG FLEXPEN-LOW RESISTANCE 3 UNITS SC (13:27)
--- NOTE | 2025-11-11 13:51 | W.PN.HOSP.TC ---
Today's Communication/Plan
-
PT eval
ppi
orthos
restart glipizie
monitor overnight
Assessment / Plan
Assessment / Plan
General: Well Developed, Well Nourished, No Apparent Distress and Conversant
HEENT: NormoCephalic, Moist mucous membranes, Nose Appears Normal and Ears Appear Normal
Respiratory: Clear and Non Labored Respirations; No Wheezes, Rales or Rhonchi
Cardiac: S1/S2, Regular Rhythm, Murmur and Peripheral Edema; No Rub or Gallop
GI: Soft, Non Tender, Non Distended and Normal Bowel Sounds
Musculoskeletal: No Clubbing and No Cyanosis
Skin: Warm and IV/Catheter Site
Neuro: Awake and Sedated
Psych: Calm
#Epigastric abdominal pain likely secondary to gastritis versus peptic ulcer disease versus lower likelihood of cardiac etiology
Currently asymptomatic
Start PPI
Troponin were checked and found to be negative x 2
EKG with left bundle branch block which is new compared to EKG which was performed 2 years ago. Patient remains chest pain-free
Echocardiogram is pending
Check orthostatic vital signs
Monitor for heart tones
Monitor symptoms with ambulation
#Recent fall
Right 10th rib fracture
Mild superior endplate fracture of L
Pain control. PT eval
#Pancreatic lesion
Outpatient follow-up with primary doctor with routine MRI
#Hyperlipidemia
Continue with statin
#Diabetes mellitus
Insulin sliding scale. Accu-Cheks
Continue glipizide
Hold metformin for now
#DVT prophylaxis-lovenox
Discussed with patient daughter at bedside in detail
Anticipated Discharge: Within 24 hours
Subjective/Interval History
-
Date of Service: November 11, 2025
Denies any discomfort, chest pain or abdominal pain.
States feeling significantly better compared to yesterday
Denies any lightheaded or dizziness
Was able to tolerate breakfast earlier today
Comfortably sitting in chair.
Objective Data
-
Vital Signs:
Vital Signs
Temp Pulse Resp BP Pulse Ox
98.8 F 91 20 164/83 98
11/11/25 11:30 11/11/25 13:00 11/11/25 11:30 11/11/25 11:29 11/11/25 11:30
I&O
11/10/25 11/11/25 11/12/25
06:59 06:59 06:59
Intake Total 480 / 480
Output Total 100 / 100
Balance 380 / 380
Data Reviewed
-
Total Time Spent with Patient (in minutes): 55
--- NOTE | 2025-11-11 14:11 | PTCARENOTE ---
Assumed care of the pt @ 0700. Pt is AAOx1-2 forgetful and impulse SR with BBB on the monitor VSS. Bed and chair alarm in use. Pt c/o epigastric pain Tylenol given with relief. Daughter at bedside. POC discussed with pt and daughter. Call sam
within reach.
[2025-11-11] MEDS: PROTONIX 40 MG PO ×2 (14:57→20:57)
[2025-11-11 16:44] LABS: Glucose - Point of Care 324 mg/dl (70-99)
[2025-11-11] MEDS: NOVOLOG FLEXPEN-LOW RESISTANCE 300 UNITS SC (17:10)
[2025-11-11] MEDS: LOVENOX 40 MG SC (17:34)
[2025-11-11 22:34] LABS: Glucose - Point of Care 297 mg/dl (70-99)
[2025-11-11] MEDS: GLUCOTROL XL (EXTENDED RELEASE) 5 MG PO (22:34)
--- NOTE | 2025-11-11 23:46 | PTCARENOTE ---
Received pt at change of shift resting in bed. SR on tele, HR 90's. pt AAOx2--disoriented to place, forgetful and impulsive @x's. Bed alarm on and audible. Educated pt to call RN for assistance ambulating. Call sam within reach.
~2250 pt w/ oral temp of 100.6, PRN Tylenol administered--see JAN.
[2025-11-12] VITALS (10 sets, daily range): BP systolic 110–151; BP diastolic 62–75; PULSE 103–115
[2025-11-12 03:53] LABS: Hematocrit 37.9 % (39.0-52.0); Hemoglobin 13.1 g/dL (13.0-18.0); Mean Corp Hgb Conc. 34.6 g/dL (33.0-37.0); Mean Corpuscular Volume 88.1 fL (80.0-94.0); Nucleated Red Blood Cells % 0 % (-); Platelet Count 216 10^3/uL (130-400); Red Cell Dist. Width 12.8 % (11.5-14.5)
[2025-11-12 04:12] LABS: Blood Urea Nitrogen 23 mg/dl (9-20); Calcium 9.2 mg/dl (8.4-10.2); Carbon Dioxide 25 mmol/L (22-30); Chloride 99 mmol/L (98-107); Estimated Creatinine Clearance 53 ml/min; Glucose 256 mg/dl (70-99); Potassium 4.3 mmol/L (3.5-5.1); Sodium 132 mmol/L (135-145); eGFR > 60.00
[2025-11-12] MEDS: GLUCOTROL XL (EXTENDED RELEASE) 15 MG PO (08:29)
[2025-11-12] MEDS: CRESTOR 20 MG PO (08:30)
[2025-11-12] MEDS: PROTONIX 40 MG PO ×2 (08:30→19:41)
[2025-11-12] MEDS: ROXICODONE 5 MG PO (08:35)
[2025-11-12 09:17] LABS: Glucose - Point of Care 206 mg/dl (70-99)
[2025-11-12] MEDS: NOVOLOG FLEXPEN-LOW RESISTANCE 2 UNITS SC (09:41)
--- NOTE | 2025-11-12 10:25 | CM ---
Chart reviewed. Patient is independent of ADLS, is a caregiver for his in an apartment at [facility] in the assisted living, patient's receives assistance with caregivers, ambulates with SPC and RW. Patient wants to go back to [place], patient's daughter agrees it will be a better environment for her father. Patient also has a house they own but currently don't stay there, that is [address], [address]. Referral sent to [facility]. Plan is for the patient to return to [facility] with
[facility]. CM to follow
--- NOTE | 2025-11-12 11:32 | W.PN.HOSP.TC ---
Today's Communication/Plan
-
Trend WBC and fever curve
Infectious workup
Continue with PPI
Assessment / Plan
Assessment / Plan
General: Well Developed, Well Nourished, No Apparent Distress and Conversant
HEENT: NormoCephalic, Moist mucous membranes, Nose Appears Normal and Ears Appear Normal
Respiratory: Clear and Non Labored Respirations; No Wheezes, Rales or Rhonchi
Cardiac: S1/S2, Regular Rhythm, Murmur and Peripheral Edema; No Rub or Gallop
GI: Soft, Non Tender, Non Distended and Normal Bowel Sounds
Musculoskeletal: No Clubbing and No Cyanosis
Skin: Warm and IV/Catheter Site
Neuro: Awake and Sedated
Psych: Calm
#Epigastric abdominal pain likely secondary to gastritis versus peptic ulcer disease versus lower likelihood of cardiac etiology
Currently asymptomatic
Start PPI
Troponin were checked and found to be negative x 2
EKG with left bundle branch block which is new compared to EKG which was performed 2 years ago. Patient remains chest pain-free
Echocardiogram EF of 65%. Normal biventricular size and function without regional wall motion abnormality. No significant valvular disease.
Check orthostatic vital signs
Monitor for heart tones
Monitor symptoms with ambulation
#Mild suspected hospital-acquired delirium
CT head on admission was negative for acute stroke,
Encourage patient sleep symptoms well overnight
Avoid any benzos
Make sure patient has access to using hearing aids
#Fever and leukocytosis likely could be reactive with recent fractures versus rule out infectious process
Check UA with reflex to culture if positive
Check set of blood cultures
Repeat chest x-ray
Monitor WBC and fever curve
#Recent fall
Right 10th rib fracture
Mild superior endplate fracture of L
Pain control. PT eval
#Pancreatic lesion
Outpatient follow-up with primary doctor with routine MRI
#Hyperlipidemia
Continue with statin
#Diabetes mellitus
Insulin sliding scale. Accu-Cheks
Continue glipizide
Hold metformin for now
A1C 8.4
#DVT prophylaxis-lovenox
Discussed with patient daughter's at bedside in detail
Anticipated Discharge: Within 24 hours
Subjective/Interval History
-
Date of Service: November 12, 2025
overnight spiked fever
States of R side ribcage pain
more tired and possibly confused
Objective Data
-
Labs:
Laboratory Results
11/12/25
02:46
WBC 25.1 H
Hgb 13.1
Hct 37.9 L
Plt Count 216
Sodium 132 L
Potassium 4.3
Chloride 99
Carbon Dioxide 25
BUN 23 H
Creatinine 1.0
Glucose 256 H
Calcium 9.2
Vital Signs:
Vital Signs
Temp Pulse Resp BP Pulse Ox
100.1 F 107 16 151/75 92
11/12/25 08:05 11/12/25 10:00 11/12/25 08:05 11/12/25 08:08 11/12/25 08:05
I&O
11/11/25 11/12/25 11/13/25
06:59 06:59 06:59
Intake Total 480 / 480 600 / 600
Output Total 100 / 100
Balance 380 / 380 600 / 600
Data Reviewed
-
Total Time Spent with Patient (in minutes): 55
[2025-11-12 13:32] LABS: Glucose - Point of Care 377 mg/dl (70-99)
[2025-11-12] MEDS: NOVOLOG FLEXPEN-LOW RESISTANCE 5 UNITS SC (13:32)
[2025-11-12] MEDS: LOPRESSOR 12.5 MG PO ×2 (15:34→19:42)
[2025-11-12 16:10] LABS: Magnesium 1.7 mg/dl (1.6-2.3)
[2025-11-12 16:15] LABS: Urine Character Clear (Clear)
[2025-11-12 16:38] LABS: Urine Squamous Cell 0-2 /LPF (Few)
[2025-11-12 16:39] LABS: Urine Red Blood Cell 0-2 /HPF (0-2)
[2025-11-12] MEDS: MAGNESIUM SULFATE 50 IV (16:49)
[2025-11-12] MEDS: LOVENOX 40 MG SC (17:32)
[2025-11-12 18:22] LABS: Glucose - Point of Care 291 mg/dl (70-99)
[2025-11-12] MEDS: NOVOLOG FLEXPEN-LOW RESISTANCE 3 UNITS SC (18:22)
--- NOTE | 2025-11-12 18:45 | PTCARENOTE ---
~3587-8683: Handoff report received from nightshift RN. Pt AOx4, forgetful at times, NSR/ST BBB 90s-100s, SBP 150s, RA satting 92%. Pt c/o R lower rib lj this AM, PRN Rosio given with relief. Patient temp 100.1 this AM as well, Blood cultures
obtained and urine sample needed to sent to lab for processing. Patient standby assist to bathroom. Family at bedside. All needs met at this time, call sam within reach.
~3581-7694: Blood cultures obtained and sent to lab. Family at bedside. Pt OOB in chair at this time. All needs met, call sam within reach.
~1380-3578: Orthostatic BPs done. After sat patient up to complete orthostatics, patient had 34 beat run NSVT, rate 180, asymtpomatic at the time. Dr. Doherty made aware, lab for Mag added and stat dose 12.5mg metoprolol ordered and given.
~3312-9327: Patient voided minimal amount of paco urine, post-void bladder scan completed, about 150ccs in bladder. Patient brought for CXR in stable condition. Patient more confused at this time, figeting with tele box wires and required
reorientation by nursing staff and family.
~0353-4019: Patient back from CXR in stable condition. Magnesium replacement bag hung.
~9716-9958: patient beign trasnfered to 2N, attempt to call report, receiving RN busy, will call back. patient and family made aware. All belongings packed up to go with patient to new room.
~1830: gave report to 2N. Patient left in stable condition via stretcher to 2125 by PCT.
--- NOTE | 2025-11-12 19:10 | PTCARENOTE ---
Pt arrived to unit and assisted x1 to bed. Pt AAOx1. VS stable. Bed alarm placed and assisted pt with meal tray. Oriented pt and family members to room and call sam. Call sam within reach.
[2025-11-12] MEDS: GLUCOTROL XL (EXTENDED RELEASE) 5 MG PO (22:12)
[2025-11-13 03:16] VITALS: BP 115/59
[2025-11-13 07:30] VITALS: BP 109/57
[2025-11-13 08:33] LABS: Hematocrit 37.6 % (39.0-52.0); Hemoglobin 12.9 g/dL (13.0-18.0); Mean Corp Hgb Conc. 34.3 g/dL (33.0-37.0); Mean Corpuscular Volume 90.4 fL (80.0-94.0); Nucleated Red Blood Cells % 0 % (-); Platelet Count 215 10^3/uL (130-400); Red Cell Dist. Width 12.8 % (11.5-14.5)
[2025-11-13 09:38] LABS: Glucose - Point of Care 74 mg/dl (70-99)
[2025-11-13] MEDS: NOVOLOG FLEXPEN-LOW RESISTANCE SC ×2 (09:38→15:18)
[2025-11-13] MEDS: CRESTOR 20 MG PO (09:39)
[2025-11-13] MEDS: PROTONIX 40 MG PO (09:39)
[2025-11-13] MEDS: LOPRESSOR 12.5 MG PO (09:39)
[2025-11-13 10:16] LABS: Blood Urea Nitrogen 36 mg/dl (9-20); Calcium 8.7 mg/dl (8.4-10.2); Carbon Dioxide 26 mmol/L (22-30); Chloride 99 mmol/L (98-107); Estimated Creatinine Clearance 44 ml/min; Glucose 61 mg/dl (70-99); Potassium 3.9 mmol/L (3.5-5.1); Sodium 132 mmol/L (135-145); eGFR 59.26
[2025-11-13 11:44] VITALS: BP 124/64
--- NOTE | 2025-11-13 12:06 | W.PN.HOSP.TC ---
Today's Communication/Plan
-
Await blood culture results
Continue with Lopressor
Outpatient therapy
Possible discharge later today
Assessment / Plan
Assessment / Plan
General: Well Developed, Well Nourished, No Apparent Distress and Conversant
HEENT: NormoCephalic, Moist mucous membranes, Nose Appears Normal and Ears Appear Normal
Respiratory: Clear and Non Labored Respirations; No Wheezes, Rales or Rhonchi
Cardiac: S1/S2, Regular Rhythm, Murmur and Peripheral Edema; No Rub or Gallop
GI: Soft, Non Tender, Non Distended and Normal Bowel Sounds
Musculoskeletal: No Clubbing and No Cyanosis
Skin: Warm and IV/Catheter Site
Neuro: Awake and Sedated
Psych: Calm
#Epigastric abdominal pain likely secondary to gastritis versus peptic ulcer disease versus lower likelihood of cardiac etiology
Currently asymptomatic
Start PPI
Troponin were checked and found to be negative x 2
EKG with left bundle branch block which is new compared to EKG which was performed 2 years ago. Patient remains chest pain-free
Echocardiogram EF of 65%. Normal biventricular size and function without regional wall motion abnormality. No significant valvular disease.
Monitor for heart tones
Monitor symptoms with ambulation
Recommend outpatient follow-up with primary glove brusher Dr. Townsend
#Mild suspected hospital-acquired delirium
CT head on admission was negative for acute stroke,
Encourage patient sleep symptoms well overnight
Avoid any benzos
Make sure patient has access to using hearing aids
#Fever and leukocytosis likely could be reactive with recent fractures versus rule out infectious process
Check UA with reflex to culture if positive no growth
Check set of blood cultures pending.
Repeat chest x-ray no acute cardiopulmonary process noted
Monitor WBC and fever curve
WBC downtrending. Remains afebrile.
#Episode of NSVT
Repleted magnesium. Started Lopressor.
No further events on telemetry noted.
#Recent fall
Right 10th rib fracture
Mild superior endplate fracture of L
Pain control. PT eval
#Pancreatic lesion
Outpatient follow-up with primary doctor with routine MRI
#Hyperlipidemia
Continue with statin
#Diabetes mellitus
Insulin sliding scale. Accu-Cheks
Continue glipizide
Hold metformin for now
A1C 8.4
#DVT prophylaxis-lovenox
Discussed with patient daughter's at bedside in detail
Dispo-SNF vs. 06/06 care. Family prefers going back to [facility]. PT/OT ordered
Anticipated Discharge: Today
Subjective/Interval History
-
Date of Service: November 13, 2025
Wished patient happy birthday
Eating pancakes
Feeling better
Slept well overnight
Objective Data
-
Labs:
Laboratory Results
11/13/25
07:48
WBC 23.3 H
Hgb 12.9 L
Hct 37.6 L
Plt Count 215
Sodium 132 L
Potassium 3.9
Chloride 99
Carbon Dioxide 26
BUN 36 H
Creatinine 1.2
Glucose 61 L
Calcium 8.7
Vital Signs:
Vital Signs
Temp Pulse Resp BP Pulse Ox
99.6 F 78 16 124/64 93
11/13/25 11:44 11/13/25 11:44 11/13/25 11:44 11/13/25 11:44 11/13/25 11:44
I&O
11/12/25 11/13/25 11/14/25
06:59 06:59 06:59
Intake Total 600 / 600 600 / 600
Output Total 80 / 80
Balance 600 / 600 520 / 520
[2025-11-13 12:56] LABS: Magnesium 2.5 mg/dl (1.6-2.3)
--- NOTE | 2025-11-13 13:38 | W.DCSUMMARY ---
Discharge Summary
Discharge Data
Date of Admission: 11/13/25
Date of Discharge: 11/13/25
-
Pending Results: No
Hospital Course
85-year-old male past medical history of diabetes mellitus, GERD, hyperlipidemia who is presenting complaints of abdominal pain and nausea. Patient underwent CT abdomen pelvis which shows pancreatic lesion. Patient symptoms improved. Patient was
started on PPI. Patient also was found to have right 10th rib fracture and lumbar 4th fracture. Patient also had episode of fever. COVID influenza negative. Urine culture negative. Blood culture remain negative. No further episode of fever.
Also had episode of NSVT. EKG with left bundle branch block compared to EKG and 2022. Patient with no left-sided substernal chest pain. Low magnesium and was repleted. Echo was performed without any wall motion abnormality. Started on
Lopressor. Patient was tolerating diet. Patient was eval by PT and OT recommended SNF but patient and family prefers going home with outpatient therapy. Recommended outpatient follow-up with primary doctor and, emergency medical tech. Also recommended
outpatient MRI of the abdomen.
Discharge Plan
-
Patient Disposition: Home with Home Care
Discharge Diagnosis/Procedures: Right lateral 10th rib fracture
Mild superior endplate fracture of L4
NSVT
Fever
Leukocytosis
Mild hyponatremia
Condition: Fair
Diet: As tolerated
Activity: As tolerated
Driving Restrictions: Not until seen by your Dr
Others Tests: MRI of the abdomen with and without contrast by primary doctor.
Other Services: PT and OT
Activity Restrictions/Additional Instructions:
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 This could represent low risk malignancy such as solid pseudopapillary tumor or solid serous cystadenoma, or malignancy such as neuroendocrine tumor or
acinar cell carcinoma. Further evaluation/characterization may be considered with nonemergent follow-up MRI of abdomen.
Referrals:
[facility] [Outside]
Jesse Townsend MD [Active, Cardiology] - in four to six weeks
Evin Zaldivar MD [Family Provider, Family Practice] - in less than 1 week
Prescriptions:
New
metoprolol tartrate 25 mg Tablet
12.5 mg PO BID 30 Days Qty: 30 0RF
pantoprazole 40 mg Tablet,Delayed Release (Dr/Ec)
40 mg PO DAILY Qty: 30 0RF
Continued
glipizide 5 mg Tablet Extended Release 24hr
15 mg PO DAILY
glipizide 5 mg Tablet Extended Release 24hr
5 mg PO HS
fluticasone propionate [Flonase Allergy Relief] 50 mcg/actuation [place],Suspension
1 spray INTRANASAL DAILY
metformin 500 mg Tablet Extended Release 24 Hr
500 mg PO BID
acetaminophen [Tylenol Extra Strength] 500 mg tablet
1,000 mg PO Q6HPRN PRN (Reason: mild pain) Qty: 1 0RF
rosuvastatin 20 mg Tablet
20 mg PO DAILY
Discontinued
ibuprofen 200 mg Tablet
200 mg PO Q6H PRN (Reason: pain)
Discharge Orders:
Discharge Patient (As Directed); Ordered 11/13/25
Ordered By: Aren Doherty
Care Plan Goals
Care Plan Goals:
Problem: Readiness for enhanced knowledge related to diagnosis and treatment plan
Goal: Understand your diagnosis and treatment plan needs, including medications if applicable.
Instructions: Know your diagnosis, underlying causes and treatment plan options, including medications if applicable. Consult with your health care team to learn about your diagnosis and treatment plan, including medications if applicable.
Discharge Date and Time
Discharge Date/Time: 11/13/25 16:30
Print Language: [place]
[2025-11-13] MEDS: GLUCOTROL XL (EXTENDED RELEASE) PO (13:41)
[2025-11-13 13:58] LABS: Glucose - Point of Care 194 mg/dl (70-99)
--- NOTE | 2025-11-13 14:51 | CM ---
CM reviewed chart, spoke with patients Nurse, Hortencia, at [facility].
CM discussed therapy recommendations, aware patient Min Assist x 1, able to accept patient back.
Requesting script for PT/OT- per Hortencia, use [facility] at [facility].
Patient seen bedside with family- family does not want [facility], would [facility]. Update to [facility] to cancel referral.
IMM verbally reviewed, provided with copy, placed in chart.
Family will transport home.
Family asking to speak with Hospitalist prior to d/c- TT with update.
CM will continue to follow.
Plan; return to [facility] to transport, script for PT/OT
[facility]
Report: [phone], Nurse Hortencia or Evie
[2025-11-13 15:43] VITALS: BP 123/63
--- NOTE | 2025-11-13 15:49 | PTCARENOTE ---
Attempted to call report to Joe Giraldo; awaiting a call back.
== END 2025-11-13 16:30 | disposition home health service (06) | DRG 206 ==
LOC: 2 NORTH 08:10
PROVIDERS: Emergency Medicine; Nurse Practitioner Family; Physician Assistant; ADMITTING PHYSICIAN Hospitalist; ATTENDING PHYSICIAN Hospitalist; EMERGENCY PHYSICIAN Emergency Medicine; FAMILY PHYSICIAN Family Medicine
DX: S22.31XA Fracture of one rib, right side, initial encounter for closed fracture (principal); S32.049A Unspecified fracture of fourth lumbar vertebra, initial encounter for closed fracture; I47.20 Ventricular tachycardia, unspecified; E87.1 Hypo-osmolality and hyponatremia; Z11.52 Encounter for screening for COVID-19; K86.9 Disease of pancreas, unspecified; E11.65 Type 2 diabetes mellitus with hyperglycemia; E78.5 Hyperlipidemia, unspecified; W19.XXXA Unspecified fall, initial encounter
CPT/HCPCS: 70450; 71046; 74177; 80048; 80053; 81003; 81015; 82962; 83036; 83690; 83735; 83880; 84100; 84484; 85025; 87040; 87086; 87502; 87811; 93005; 93306; 96374; 96375; 96376; 97163; 97166; 99285; Q9967